=== PATIENT | female | born 1990 ===

== ENCOUNTER 2016-12-31 11:35 | Emergency (ER) | payer OTHER ==
[2016-12-31 11:35] VITALS: BMI 21.0
--- NOTE | 2016-12-31 12:05 | ED PDOC ---
Arrival/HPI - General Chief Complaint: Back Pain Time Seen by Provider: 12/31/16 11:44 Historian: Patient - History of Present Illness Narrative History of Present Illness (Text): 12/31/16 11:57 Patient is a 26 year old female, 19 weeks , , taking vitamins, who presents to the emergency department with bilateral flank pain for the past 3 days. She states it is constant and worse with movement. She says she did not take anything for pain. Patient also reports urinary urgency. Denies abdominal pain, vaginal bleeding, hematuria, or hematochezia. Time/Duration: < week Symptom Onset: Gradual Symptom Course: Unchanged Modifying Factors (Text): None Past Medical History - Provider Review Nursing Documentation Reviewed: Yes - Cardiac Hx Cardiac Disorders: No - Pulmonary Hx Respiratory Disorders: Yes Hx Asthma: Yes - Neurological Hx Neurological Disorder: No - HEENT Hx HEENT Disorder: No - Renal Hx Renal Disorder: No - Endocrine/Metabolic Hx Endocrine Disorders: No - Hematological/Oncological Hx Blood Disorders: No - Integumentary Hx Dermatological Disorder: No - Musculoskeletal/Rheumatological Hx Musculoskeletal Disorders: No - Gastrointestinal Hx Gastrointestinal Disorders: No - Genitourinary/Gynecological Hx Genitourinary Disorders: No - Psychiatric Hx Psychophysiologic Disorder: No Hx Substance Use: No Family/Social History - Physician Review Nursing Documentation Reviewed: Yes Family/Social History: Unknown Family HX Smoking Status: Never Smoked Hx Alcohol Use: No Hx Substance Use: No Allergies/Home Meds Allergies/Adverse Reactions: Allergies No Known Allergies Allergy (Verified 09/28/16 09:28) Home Medications: Home Meds Medication Instructions Recorded Confirmed No Known Home Med 09/25/16 09/28/16 Review of Systems - Review of Systems Constitutional: absent: Fatigue, Fevers Eyes: absent: Vision Changes ENT: absent: Hearing Changes Respiratory: absent: SOB, Cough, Wheezing Cardiovascular: absent: Chest Pain, Calf Pain, BUSTAMANTE Gastrointestinal: absent: Abdominal Pain, Nausea, Hematochezia Genitourinary Female: Urine Output Changes, Other (Urgency). absent: Hematuria , Vaginal Bleeding, Vaginal Discharge Musculoskeletal: Back Pain (bilateral mid back pain). absent: Neck Pain Skin: absent: Rash, Pruritis Neurological: absent: Dizziness Endocrine: absent: Diaphoresis, Polyuria Hemo/Lymphatic: absent: Easy Bleeding Psychiatric: absent: Depression Physical Exam - Physical Exam Narrative Physical Exam (Text): Head: Atraumatic. Normocephalic. Eyes: PERRL. EOMI. Conjunctivae are not pale. ENT: Mucous membranes are moist and intact. Oropharynx is clear and symmetric. Neck: Supple. Full ROM. No JVD. No lymphadenopathy. Cardiovascular: Regular rate. Regular rhythm. No murmurs, rubs, or gallops. Distal pulses are 2+ and symmetric. Pulmonary/Chest: No evidence of respiratory distress. Clear to auscultation bilaterally. No wheezing, rales or rhonchi. Abdominal: Gravid. There is no tenderness. No rebound, guarding, or rigidity. No organomegaly. Good bowel sounds. Back: Bilateral mild mid back pain on palpation. No rash. No edema or crepitus. No CVA tenderness. Extremities: No edema. No cyanosis. No clubbing. Full range of motion in all extremities. No calf tenderness. Skin: Skin is warm and dry. No petechiae. No purpura. Neurological: Alert, awake, and oriented to person, place, time, and situation. Normal speech. Motor and sensory exam intact. Psychiatric: Good eye contact. Normal interaction, affect, and behavior. No depression or suicidal ideation expressed. 12/31/16 17:57 Vital Signs Reviewed: Yes Vital Signs Temp Pulse Resp BP Pulse Ox 12/31/16 17:55 99 F 86 18 110/78 99 12/31/16 11:49 98.3 F 118 H 18 106/82 100 Temperature: Afebrile Blood Pressure: Normal Pulse: Tachycardic Respiratory Rate: Normal Appearance: Positive for: Well-Appearing, Non-Toxic, Comfortable Pain Distress: Moderate Mental Status: Positive for: Alert and Oriented X 3 Medical Decision Making ED Course and Treatment: Differential Diagnosis included but are not limited to: Lumbar strain vs pyelonephritis vs threatened miscarriage vs. renal colic Plan: Will obtain ultrasound, labs, and Urinalysis. Prior Visits: Notes and results from previous visits were reviewed. Patient last seen in the ED on 09/28/16 for repeat beta, abdominal pain, and discharged home. Progress Notes: Patient examined with criminal investigator customs present throughout history and physical. She has moderate to severe pain, initially described as sudden onset 2-3 days ago, and intermittent. Pain more severe today associated with sensation that she is not "getting all of her urine out". SHE HAS NO ABDOMINAL PAIN OR VAGINAL BLEEDING. Reports seeing her [employer] within past 2 weeks and reports no complications. Given , and renal ultrasound ordered: 12/31/16 14:55 Preliminary renal ultrasound reveals bilateral hydronephrosis. Case discussed with budget consultant urology who will evaluate the patient. PROCEDURE: Ultrasound of the Kidneys Golf Tournament Consultant : Chico Oropeza MD Report Date : 12/31/2016 15:09:21 IMPRESSION: Bilateral hydronephrosis. This be categorized as moderate an approximately symmetrical. PROCEDURE: ultrasound Golf Tournament Consultant : Chico Oropeza MD Report Date : 12/31/2016 15:08:18 FINDINGS: Variable presentation. Posterior Placenta. No evidence of abruption or previa Gestational age derived from LMP 19 weeks Gestational age derived from the following biometric parameters 19 weeks 3 days . Biparietal diameter 4.5 cm Head [id number] cm Abdominal circumference 14.6 cm Femur length 3.0 cm Estimated weight 82890.45 g Calculated cardiac rate 138 beats per min. Closed cervix measuring for cm Incidental finding(s): Two anterior uterine fibroids 5 x 3.7 cm and 4.2 x 5.4 cm. IMPRESSION: Nineteen weeks 3 days live intrauterine gestation. BEN based on LMP: 05/27/2017 BEN based on biometry: 05/24/2017 Ultrasound findings reviewed with patient. Tylenol ordered for pain. She is able to urinate but "not as much as usual". No obvious UTI noted, but urine culture was sent Case discussed with Dr. Stevie Morrison evaluated patient in the ER, and recommended transfer to [facility] where provider education specialist is present for observation of symptoms due to persistent pain. Differential includes possible renal colic. She continues to have no abdominal pain. Case discussed with patient's REFUELING RAMP ATTENDANT Dr. Alvin Giang. Will call on-call REFUELING RAMP ATTENDANT to accept transfer to [facility]. Case discussed with Dr. Polk, on-call nc machinist, accepts transfer to [facility]. Family updated and patient updated with treatment plan. present in emergency department and has translated for patient. Case discussed with Dr. Steinberg, ER attending at [facility]. Risks/benefits of transfer discussed with patient and in laymen's terms , consent to transfer obtained. Patient states pain improved after urinating, but persists. 12/31/16 18:00 - Lab Interpretations Lab Results: 12/31/16 12:30 12/31/16 12:30 Lab Results 12/31/16 12:30: Urine Color Yellow, Urine Appearance Clear, Urine pH 7.0, Ur Specific [place] 1.020, Urine Protein Negative, Urine Glucose (UA) Negative, Urine Ketones Negative, Urine Blood Small H, Urine Nitrate Negative, Urine Bilirubin Negative, Urine Urobilinogen 0.2, Ur Leukocyte Esterase Negative, Urine RBC 0 - 2, Urine WBC 0 - 2, Ur Epithelial Cells 4 - 5, Urine Bacteria Few 12/31/16 12:30: PT 10.3, INR 0.95, APTT 31.5 H 12/31/16 12:30: WBC 10.2 D, RBC 3.40 L, Hgb 10.6 L, Hct 29.5 L, MCV 86.8, MCH 31.2, MCHC 35.9, RDW 12.8, Plt Count 240, MPV 8.8, Gran % 75.1 H, Lymph % (Auto ) 18.4 L, [place] % (Auto) 5.1, Eos % (Auto) 1.2 L, Baso % (Auto) 0.2, Gran # 7.66 H, Lymph # 1.9, [place] # 0.5, Eos # 0.1, Baso # 0.02 12/31/16 12:30: Sodium 133, Potassium 3.5 L, Chloride 101, Carbon Dioxide 24, Anion Gap 12, BUN 10, Creatinine 0.5, Est GFR ( Amer) > 60, Est GFR (Non- Af Amer) > 60, Random Glucose 80, Calcium 9.3, Total Bilirubin 0.4, AST 17, ALT 21, Alkaline Phosphatase 43, Total Protein 7.1, Albumin 3.6, Globulin 3.5, Albumin/Globulin Ratio 1.0 L - RAD Interpretation Radiology Orders: 12/31/16 12:05 AGE [US] Stat 12/31/16 12:06 RENAL [US] Stat - Medication Orders Current Medication Orders: Discontinued Medications Acetaminophen (Tylenol 325mg Tab) 650 mg PO ONCE STA Stop: 12/31/16 15:12 - Scribe Statement The provider has reviewed the documentation as recorded by the David Laird Provider Scribe Attestation: All medical record entries made by the Scribe were at my direction and personally dictated by me. I have reviewed the chart and agree that the record accurately reflects my personal performance of the history, physical exam, medical decision making, and the department course for this patient. I have also personally directed, reviewed, and agree with the discharge instructions and disposition. Disposition/Present on Arrival - Present on Arrival Any Indicators Present on Arrival: No History of DVT/PE: No History of Uncontrolled Diabetes: No Urinary Catheter: No History Surgical Site Infection Following: None - Disposition Have Diagnosis and Disposition been Completed?: Yes Diagnosis: , Back pain Disposition: Transfer [facility] Disposition Time: 17:34 Patient Plan: Transfer To Patient Problems: Current Active Problems Problem Status Onset Back pain Acute Acute Condition: FAIR
[2016-12-31 12:43] LABS: URINE BILIRUBIN NEGATIVE (NEGATIVE); URINE BLOOD SMALL (NEGATIVE); URINE GLUCOSE (UA) NEGATIVE (NEGATIVE); URINE KETONE NEGATIVE (NEGATIVE); URINE LEUKOCYTE ESTERASE NEGATIVE Leu/uL (NEGATIVE); URINE PROTEIN NEGATIVE mg/dL (<30 mg/dL); URINE UROBILINOGEN 0.2 E.U./dL (<1 E.U./dL)
[2016-12-31 12:46] LABS: URINE APPEARANCE CLEAR (CLEAR); URINE COLOR YELLOW (YELLOW)
[2016-12-31 12:54] LABS: ADD MANUAL DIFF? NO
[2016-12-31 12:56] LABS: BASO # 0.02 K/mm3 (0.0-2.0); BASO % 0.2 % (0.0-3.0); EOS # 0.1 (0.0-0.7); EOS % 1.2 % (1.5-5.0); GRAN # 7.66 (1.4-6.5); GRAN % 75.1 % (50.0-68.0); HEMATOCRIT 29.5 % (36.0-48.0); LYMPH # 1.9 (1.2-3.4); LYMPH % 18.4 % (22.0-35.0); MEAN CELL VOLUME 86.8 fL (80.0-105.0); MEAN CORPUSCULAR HEMOGLOBIN 31.2 pg (25.0-35.0); MEAN CORPUSCULAR HGB CONC 35.9 g/dl (31.0-37.0); MEAN PLATELET VOLUME 8.8 fl (7.0-11.0); MONO # 0.5 (0.1-0.6); MONO % 5.1 % (1.0-6.0); PLATELET COUNT 240 10^3/uL (120.0-450.0); RED CELL DISTRIBUTION WIDTH 12.8 % (11.5-14.5); WHITE BLOOD COUNT 10.2 10^3/ul (4.5-11.0)
[2016-12-31 13:02] LABS: URINE BACTERIA FEW (NEG); URINE RBC 0 - 2 /hpf (0-2); URINE WBC 0 - 2 /hpf (0-6)
[2016-12-31 13:08] LABS: ALKALINE PHOSPHATASE 43 U/L (38-133); ALT/SGPT 21 U/L (7-56); AST/SGOT 17 U/L (15-39); BILIRUBIN,TOTAL 0.4 mg/dL (0.2-1.3); BLOOD UREA NITROGEN 10 mg/dL (7-21); CALCIUM 9.3 mg/dL (8.4-10.5); CARBON DIOXIDE 24 mmol/L (21-33); CHLORIDE 101 mmol/L (98-107); GFR AFRICAN-AMERICAN > 60; GLUCOSE,RANDOM 80 mg/dL (70-110); POTASSIUM 3.5 mmol/L (3.6-5.0); SODIUM 133 mmol/L (132-148); TOTAL PROTEIN 7.1 g/dL (5.8-8.3)
[2016-12-31 13:10] LABS: INR 0.95 (0.93-1.08); PARTIAL THROMBOPLASTIN TIME 31.5 Seconds (23.7-30.8)
--- NOTE | 2016-12-31 15:09 | US ---
PROCEDURE: ultrasound HISTORY: back pain, COMPARISON: 09/25/2016 TECHNIQUE: Standard protocol for this study/examination. FINDINGS: Variable presentation. Posterior Placenta. No evidence of abruption or previa Gestational age derived from LMP 19 weeks Gestational age derived from the following biometric parameters 19 weeks 3 days . Biparietal diameter 4.5 cm Head [id number] cm Abdominal circumference 14.6 cm Femur length 3.0 cm Estimated weight 45409.45 g Calculated cardiac rate 138 beats per min. Closed cervix measuring for cm Incidental finding(s): Two anterior uterine fibroids 5 x 3.7 cm and 4.2 x 5.4 cm. IMPRESSION: Nineteen weeks 3 days live intrauterine gestation. BEN based on LMP: 05/27/2017 BEN based on biometry: 05/24/2017
--- NOTE | 2016-12-31 15:10 | US ---
PROCEDURE: Ultrasound of the Kidneys HISTORY: flank pain with urinary symptoms COMPARISON: None available. TECHNIQUE: Sonogram of the kidneys. FINDINGS: RIGHT KIDNEY: Measures: 5.3 x 10.9 cm. Normal in size, contour and echogenicity. Moderate hydronephrosis LEFT KIDNEY: Measures: 5.8 x 11.6 cm. Normal in size, contour and echogenicity. Moderate hydronephrosis OTHER FINDINGS: None. IMPRESSION: Bilateral hydronephrosis. This be categorized as moderate an approximately symmetrical.
[2016-12-31 20:27] VITALS: BP 104/61; PULSE 88; RESP 16; TEMP 98.4; O2SAT 100
== END 2016-12-31 19:45 | disposition short-term general hospital (02) ==
LOC: ED 11:35
DX: O26.92 Pregnancy related conditions, unspecified, second trimester (principal); Z3A.19 19 weeks gestation of pregnancy; M54.9 Dorsalgia, unspecified